=== PATIENT | male | born 1990 | race American Indian/Alaskan Native ===

== ENCOUNTER 2017-06-07 08:59 | Outpatient (CLI) | payer BC ==
--- NOTE | 2017-06-07 10:30 | XRay Report ---
LEFT ANKLE: History: Trauma with pain. The bones are well mineralized with normal bony contours and joint alignment. No fractures or destructive changes are noted and the adjacent soft tissues are normal. IMPRESSION: Normal study.
== END 2017-06-07 09:00 | disposition home or self-care (01) ==
LOC: SPVIMAG 08:59
PROVIDERS: ATTEND Internal Medicine
DX: S93.402A Sprain of unspecified ligament of left ankle, initial encounter (principal); X58.XXXA Exposure to other specified factors, initial encounter; Y93.89 Activity, other specified; Y92.89 Other specified places as the place of occurrence of the external cause; Y99.8 Other external cause status